=== PATIENT | female | born 1980 | race Caucasian/White ===

== ENCOUNTER → 2020-12-17 09:57 | Outpatient (CLI) | payer OTHER, SELFPAY ==
--- NOTE | 2020-12-17 09:58 | DI.MG.S_ITS ---
BILATERAL DIGITAL DIAGNOSTIC MAMMOGRAM 3D/2D: 12/17/2020 CLINICAL: Left lump. Comparison is made to exam dated: 01/10/2020 mammogram - [facility]. The tissue of both breasts is heterogeneously dense. This may lower the sensitivity of mammography. There is an irregular equal density global asymmetry with an indistinct margin in the left breast at 1 o'clock posterior depth. This correlates as palpated. No other significant masses, calcifications, or other findings are seen in either breast. IMPRESSION: INCOMPLETE: NEEDS ADDITIONAL IMAGING EVALUATION The irregular equal density global asymmetry in the left breast likely represents fibroglandular tissue and is indeterminate. An ultrasound is recommended. Ultrasound will be performed immediately following the current exam. This exam was interpreted at Station ID: [id number]. NOTE: For mammograms, a report in lay terms will be sent to the patient. Approximately 15% of breast malignancies will not be visualized mammographically. In the management of a palpable breast mass, a negative mammogram must not discourage biopsy of a clinically suspicious lesion. Electronically Signed By: Rupesh Chow M.D. ddp/:12/17/2020 11:01:40 ACR BI-RADS Category 0: Incomplete [id number]
--- NOTE | 2020-12-17 09:58 | DI.US.S_ITS ---
LIMITED ULTRASOUND OF LEFT BREAST: 12/17/2020 CLINICAL: Palpable left breast lump. Comparison is made to exams dated: 12/17/2020 mammogram - [facility] and 01/10/2020 mammogram - [facility]. Real-time ultrasound of the left breast upper outer quadrant was performed on the area of interest. There is an oval area of fibroglandular tissue with an indistinct margin in the left breast at 2 o'clock middle depth. This oval area of fibroglandular tissue is of mixed echogenicity. This correlates as palpated and with mammography findings. Color flow imaging demonstrates that there is no increase in vascularity. No discrete cystic or solid mass lesion identified in the area of palpable abnormality. IMPRESSION: BENIGN There is no sonographic evidence of malignancy. The oval area of fibroglandular tissue in the left breast appears benign. No suspicious mass identified. Recommend clinical followup of palpable abnormality. A 1 year screening mammogram is recommended. This exam was interpreted at Station ID: [id number]. Electronically Signed By: Rupesh francis/:12/17/2020 11:00:16 letter sent: Clinical Evaluation Ultrasound BI-RADS: 2 Benign
== END ==
PROVIDERS: PCP Family Medicine Geriatric Medicine; Referring Provider Family Medicine Geriatric Medicine; Visit Provider Specialist
DX: R92.8 Other abnormal and inconclusive findings on diagnostic imaging of breast (principal); N63.21 Unspecified lump in the left breast, upper outer quadrant
CPT/HCPCS: 76642; 77066; G0279

== ENCOUNTER → 2022-01-29 08:10 | Outpatient (CLI) | payer OTHER, SELFPAY ==
--- NOTE | 2022-01-29 | DI.MG.S_ITS ---
BILATERAL DIGITAL SCREENING MAMMOGRAM 3D/2D WITH CAD: 01/29/2022 CLINICAL: Routine screening. Family history of breast cancer. Comparison is made to exams dated: 12/17/2020 mammogram - [facility] and 01/10/2020 mammogram - [facility]. The tissue of both breasts is extremely dense, which lowers the sensitivity of mammography. Current study was also evaluated with a Computer Aided Detection (CAD) system. No significant masses, calcifications, or other findings are seen in either breast. There has been no significant interval change. IMPRESSION: NEGATIVE There is no mammographic evidence of malignancy. A 1 year screening mammogram is recommended. This exam was interpreted at Station ID: [id number]. NOTE: For mammograms, a report in lay terms will be sent to the patient. Approximately 15% of breast malignancies will not be visualized mammographically. In the management of a palpable breast mass, a negative mammogram must not discourage biopsy of a clinically suspicious lesion. Electronically Signed By: Pedro [email or web address]/[email or web address]:01/29/2022 12:45:01 letter sent: Normal Exam ACR BI-RADS Category 1: Negative [id number]
== END ==
PROVIDERS: PCP Student in an Organized Health Care Education/Training Program; Referring Provider Specialist; Visit Provider Specialist
DX: Z12.31 Encounter for screening mammogram for malignant neoplasm of breast (principal); Z80.3 Family history of malignant neoplasm of breast
CPT/HCPCS: 77063; 77067